=== PATIENT | male | born 1975 | race Caucasian/White ===

== ENCOUNTER 2019-09-16 12:38 | Outpatient (CLI) | payer OTHER, SELFPAY ==
--- NOTE | ~2019-09-16 | XR_ITS ---
EXAMINATION: XR chest 2V DATE: 09/16/2019 13:01 INDICATION: Cough. Chest tightness. TECHNIQUE: Frontal and lateral views of the chest were obtained on 4 radiographs. COMPARISON: None. FINDINGS: The chest demonstrates clear lungs without pneumonia, pleural effusion, or pneumothorax. Th e heart size is normal. There are surgical changes of the heart. Pectus excavatum is noted. IMPRESSION: 1. No acute cardiopulmonary disease. Reviewed, dictated and finalized at location A.
== END 2019-09-16 12:39 | disposition home or self-care (01) ==
LOC: ANHIMG 12:48
DX: R05 Cough (principal)
CPT/HCPCS: 71046

== ENCOUNTER 2020-09-22 09:58 | Outpatient (CLI) | payer OTHER, BC, SELFPAY ==
--- NOTE | ~2020-09-22 | XR_ITS ---
EXAMINATION: XR chest 2V 09/22/2020 10:37 INDICATION: Cough PROCEDURE: 2 view chest COMPARISON: 09/16/2019 FINDINGS: The lungs are clear. The cardiomediastinal silhouette is within normal limits. There are no pleural effusions. There is no pneumothorax suspected. Status post median sternotomy for CABG. T here is pectus excavatum. IMPRESSION: 1: NO ACUTE CARDIOPULMONARY DISEASE. Reviewed, dictated and finalized at location B.
== END 2020-09-22 09:59 | disposition home or self-care (01) ==
DX: R05 Cough (principal)
CPT/HCPCS: 71046

== ENCOUNTER 2024-08-30 09:54 | Outpatient (CLI) | payer OTHER, SELFPAY ==
--- NOTE | ~2024-08-30 | XR_ITS ---
Right Hand Technique: PA, oblique, and lateral views were obtained. Clinical History: Pain Findings: No acute fracture or dislocation is seen. Osseous alignment is anatomic. Joint spaces are p reserved. Soft tissues are unremarkable. Impression: Unremarkable right hand. Reviewed, dictated and finalized at location M. Impression: Unremarkable right hand.
--- OUTSIDE RECORDS SUMMARY | 2024-08-30 10:02 | XMS_ITS | Encounter Summary ---
Author Organization [facility] Address [address] [place] [address] Phone Care Team Providers Care Marketing Copywriter Name Role Phone Donnie Gómez MD PhD Unavailable [phone] Jonathan Tejada MD Primary Care Provider [phone] Encounter Details Date Type Department Care Team (Late st Contact Info) Description 08/23/2024 Results Follow-Up [facility] Cardiology [address] [facility] 8th [place] [address] [place] [id number] Clark Brown MD PhD [address] [facility] [address] [place], [place] [id number] Social History Tobacco Use Types Packs/Day Years Used Date Smoking Tobacco: Former Cigarettes 0.8 8 2 008 - 2016 Smokeless Tobacco: Never AUDIT-C Answer Date Recorded Q1: How often do you have a drink containing alcohol? 4 or more times a week 12/21/2023 Q2: How many drinks containi ng alcohol do you have on a typical day when you are drinking? 1 or 2 Q3: How often do you have si x or more drinks on one occasion? Never 12/21/2023 PHQ-2 Answer Date Recorded PHQ-2 Total Score (If total score is 3 or more points, staff should administer the PHQ-9) 0 12/21/2023 Sex and Gender Information Value Date Recorded Sex Assigned at Not on file Legal Sex Male 4:08 AM [facility] Gender Identity Male 06/11/2022 9:22 AM [facility] Sexual Orientation Not on file documented as of this encounter Plan of Treatment Not on file documented as of this encounter Visit Diagnoses Not on filedocumented in this encounter Care Teams Marketing Copywriter Relationship Specialty Start Date End Date Jonathan Tejada MD [address] [place] [address] PCP - General 03/29/24 Donnie Gómez MD PhD [address] [facility] [address] [place] [address] 09/16/19 documented as of this encounter
--- OUTSIDE RECORDS SUMMARY | 2024-08-30 10:02 | XMS_ITS | Clinical Summary ---
Author Organization [facility] Address [address] [place] [address] Care Team Providers Care Supervisor Travel Trailer Name Role Phone Donnie Gómez MD PhD Unavailable Jonathan Tejada MD Primary Care Provider [phone] Allergies No known active allergies Medications levothyroxine (SYNTHROID) 100 mcg tablet Take 1 tablet (100 mcg total) by mouth daily 3 Active lisinopriL (PRINIVIL,ZESTRIL) 10 mg tablet TAKE 1 TABLET(10 MG) BY MOUTH DAILY 30 tablet 11 4 Active atorvastatin (LIPITOR) 20 mg tabletIndications:M ixed hyperlipidemia TAKE 1 TABLET(20 MG) BY MOUTH DAILY 100 tablet 1 4 Active aspirin 81 mg enteric coated tablet Take 1 tablet (81 mg total) by mouth daily Active Active Problems Problem Noted Date Diagnosed Date Special screening for malignant neoplasms, colon 12/21/2023 Acquired hypothyroidism 04/19/2019 Overview (12/21/2023): Chronic, stable condition on daily thyroid replacement Continue same medications Routine physical examination 04/19/2019 Overview (12/21/2023): New: December 21, 2023 Assessment & Plan (08/18/2023 9:16 AM CDT): He has a PCP who checks his lipids and hgba1c, concerned about atypical chest pain and family history of CAD. Monitor. 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 With residual mild to moderate PI 05/2022-NYHA class I findings. ECHO pending. RV and LV have been stable in the past. ASA and SBE. Await ECHO from today. SBP remains elevated, I have asked that he monitor this at home, if it remains greater tahn 130 systolic consistently we will need to double his Lisinopril. ECHO in one year same day as Dr. Brown. Assessment & Plan (06/10/2022 10:41 AM [employer]): ToF with right BT shunt and Bioprosthetic porcine valve in 2003. With severe PI and asymptomatic in clinic. ECHO pending. RV and LV have been stable in the past. SBE. Await ECHO from today. SBP remains elevated, pt admittedly not great at remembering his lisinopril. Encouraged compliance will speak with pharmacist to see if levothyroxine and lisinopril can be taken together. Had recent lab work. Palpitations, unclear etiology. Holter monitor. ECHO in one year. Resolved Problems Problem Noted Date Diagnosed Date Resolved Date Essential hypertension 05/28/202112/20 Assessment & Plan (08/18/2023 9:15 AM CDT): SBP remains elevated, I have asked that he monitor this at home, if it remains greater than 130 systolic consistently we will need to double his Lisinopril. Assessment & Plan (06/10/2022 10:39 AM [employer]): SBP elevated in clinic and on repeat. Encourgaed compliance with lisinopril and to monitor SBP at home. Elevated blood pressure reading 04/24/2020 05/28/2021 Encounters Date Type Department Care Team Description 08/23/2024 Results Follow-Up [facility] Cardiology [address] [facility] 8th [place] [address] [place] [address] Clark Brown MD PhD 08/22/2024 3:00 PM CDT Office Visit [facility] Cardiology [address] [facility] 8th [place] [address] [place] [address] Clark Brown MD PhD Tetralogy of Fallot (Primary Dx) 08/22/2024 1:15 PM CDT - 08/22/2024 11:59 PM CDT Hospital Encounter [facility] [address] [facility] 8th [place] [address] Tetralogy of Fallot Discharge Disposition: Discharge to home or self care from Last 3 Months Immunizations Immunization Administration Dates Next Due Influenza Virus Vaccine Trivalent Mdv 01/18/2016 Influenza, Quadrivalent, Shira l Culture-based MDCK, Antibiotic Free, Intramuscular 01/30/2017 Influenza, Quadrivalent, Shira l Culture-based MDCK, Preservative Free, Antibiotic Free, Intramuscular 02/02/2018 Influenza, Trivalent, Cell Culture-based MDCK, Preservative Free, Antibiotic Free, Intramuscular 04/02/2021,01/03/2020,02/02/2018 Influenza, Trivalent, Preser vative Free, Intramuscular 12/21/2023 Influenza, Unspecified 07/15/2023(Deferred: Angelina ent Refused) Pfizer SARS-CoV-2 Monovalent Vaccination (12+ Yrs) PURPLE 01/05/2021,04/26/2019 Pneumococcal Conjugate PCV 13 04/22/2016 Tdap 02/11/2018,01/18/2016,06/02/2006 Surgical History Surgery Date Site/Laterality Comments CARDIAC VALVE REPLACEMENT Heart Valve Replacement - Heart Valve Replacement (Added by TW Conv) HI REPLACEMENT PULMONARY VALVE Pulmonary Valve Replacement - (Added by TW Conv) Medical History Medical History Date Comments Tobacco abuse counseling Encount er for smoking cessation counseling - 12/30/2010 (Added by TW Conv) Family History Medical History Relation Name Comments Heart attack Father Clark Henderson Family history of myocardial infarction - (Added by TW Conv) Relation Name Status Comments Father Clark Henderson Social History Tobacco Use Types Packs/Day Years [...] on file Legal Sex Male 4:08 AM [employer] Gender Identity Male 06/11/2022 9:22 AM [employer] Sexual Orientation Not on file Obstetrics History Last Filed Vital Signs Vital Sign Reading Time Taken Comments Blood Pressure 127/83 08/22/2024 2:28 PM CDT Pulse 78 08/22/2024 2:28 PM CDT Temperature 36.2 C (97.2 F) 12/21/2023 4:33 PM CDT Respiratory Rate 18 12/21/2023 4:33 PM CDT Oxygen Saturation 98% 08/22/2024 2:28 PM CDT Inhaled Oxygen Concentration - - Weight 71.2 kg (157 lb) 08/22/2024 2:28 PM CDT Height 172.7 cm (5' 8 ) 08/22/2024 2:28 PM CDT Body Mass Index 23.87 08/22/2024 2:28 PM CDT Plan of Treatment Health Maintenance Due Date Last Done Comments Colon Cancer Screening-Colonoscopy 1975 Zoster Vaccine (1 of 2) 09/13/2023 Covid-19 Vaccine ( season) 2023 01/05/2021, 04/26/2020, 04/05/2020, Additional history exists Depression Screening 12/20/2024 12/21/2023 Regular Well Visit/Exam 18-64 12/20/2024 12/21/2023 Prostate Cancer Screening-PSA 12/21/2025 12/22/2023 DTaP/Tdap/Td Vaccine (4 - Td or Tdap) 02/12/2028 02/11/2018, 01/18/2016, 06/02/2006 Pneumococcal vaccine <65 Aged Out 04/22/2016 No longer eligible based on patient's age to complete this topic Influenza Vaccine Completed 12/21/2023, , 01/03/2020, Additional history exists Hepatitis B Screening Completed 12/22/2023 Hepatitis C Screening Completed 12/22/2023 Procedures Procedure Name Priority Date/Time Associated Diagnosis Comments CONGENITAL TRANSTHORACIC ECHO (TTE) COMPLETE W DOPPLER/CF WO CONTRAST Routine 08/22/2024 2:26 PM CDT Tetralogy of Fallot HEPATITIS C ANTIBODY Routine 12/22/2023 8:41 AM CDT Need for hepatitis C screening test PSA SCREEN Routine 12/22/2023 8:41 AM CDT Screening PSA (prostate specific antigen) from Last 3 Months or Most Recently Relevant to Health Maintenance Results * CONGENITAL TRANSTHORACIC ECHO (TTE) COMPLETE W DOPPLER/CF WO CONTRAST (08/22/2024 2:26 PM CDT) EF Mod BP 60 % CONS SCIMAGE Anatomical Region Laterality Modality Ultrasound 08/22/2024 1:27 PM CDT Narrative 08/23/2024 4:37 AM CDT [facility] [place] [address] Transthoracic Echocardiographic Report Patient Name: EMORY HENDERSON E : 1975 (48y 11m) Gender: M Study Date: 08/22/2024 01:27:53 PM Ht(Inch): 68 Wt(Lb): 156.99 BSA: 1.85 Manager Telemetry: Nikolas Vicente RDCS Location: [facility] Order Provider: LIZ LONG Heart Rate: 70 BMI: 23.87 BP: 127 / 86 Ref Provider: LIZ LONG PROCEDURES: Echocardiographic Report: Transthoracic complete echo with strain imaging, 2D, spectral and tissue Doppler, color flow Doppler, M-mode. INDICATIONS: Tetralogy of Fallot. CONCLUSIONS: 1. Adult Congenital Heart Disease, s/p repair for Tetralogy of Fallot; s/p Pulmonic valve replacement with bioprosthesis (2003); ; Normal left ventricular size based on volume index. Concentric LV remodeling. Normal left ventricular systolic function. The Ejection Fraction (Arreola's) is measured at 60 %. The average global longitudinal strain is borderline. 2. Normal right ventricular size. Moderate right ventricular hypokinesis. 3. There is a bioprosthetic valve in the pulmonic position. The valve appears well seated with normal leaflet motion. Transpulmonary gradient is normal. ATTESTATION: I have personally reviewed and interpreted this study without fellow or resident. - DISCLAIMER: The study images and the final report will be retained in the patient chart by the Echo Laboratory for the legally required time period. This chart constitutes the legal record of any testing performed. FINDINGS: Left Ventricle: Normal left ventricular size based on volume index. Concentric LV remodeling. Normal left ventricular systolic function. The Ejection Fraction (Arreola's) is measured at 60 %. The average global longitudinal strain is borderline. The LV global strain is: -17.1 %. Right Ventricle: Normal right ventricular size. Moderate right ventricular hypokinesis. Left Atrium: The left atrium is normal in size. Right Atrium: The right atrium is normal in size. Mitral Valve: Normal Mitral Valve Structure. Mild mitral valve regurgitation. Aortic Valve: Normal trileaflet aortic valve. No aortic regurgitation. No aortic valve stenosis. Tricuspid Valve: Normal tricuspid valve structure. No tricuspid regurgitation. No tricuspid valve stenosis. Pulmonic Valve: There is a bioprosthetic valve in the pulmonic position. The valve appears well seated with normal leaflet motion. Transpulmonary gradient is normal. The pulmonic prosthesis demonstrates a normal transvalvular gradient for valve type and size. Peak gradient 12 mm Hg across the pulmonic bioprosthesis. Pericardium: Normal pericardium without pericardial effusion. Aorta: Mild aortic root dilation at sinuses of Valsalva. Dilation of the aortic root when indexed. PASP: Normal estimated pulmonary artery systolic pressure. Congenital: Sinus Solitus. Levocardia. Rhythm: Normal Sinus rhythm was seen during the study. MEASUREMENTS: 2D/MM Value Range Doppler Value Range LVIDd 2D 3.86 cm [ 4.20 - 5.80 ] AV Peak Jacoby 0.9 m/s [ 1.0 - 1.7 ] LVIDs 2D 2.59 cm [ 2.50 - 4.00 ] AV Peak PG 3.24 mmHg IVSd 2D 1.13 cm [ 0.60 - 1.00 ] AV Mean PG 2 mmHg LVPWd 2D 1.09 cm [ 0.60 - 1.00 ] AV VTI 18.3 cm LV Thickness Ratio 1.0 LVOT Peak Jacoby 0.8 m/s [ 0.7 - 1.1 ] LV FS 2D 32.89 % [ 25.00 - 43.00 ] LVOT Peak PG 2.56 mmHg LV Mass 2D 141.59 g LVOT Mean PG 2 mmHg LV Mass Index 2D 76.54 g/m2 LVOT VTI 14.9 cm RWT 0.56 LVOT Diam 2.39 cm EDV Mod BP 88.49 ml [ 62.00 - 150.00 ] CYNTHIA VTI 3.65 cm2 LV EDV Index 47.83 ml/m2 LVOT/AV VTI 0.81 - Dimensionless index (DVI) ESV Mod BP 35.41 ml [ 21.00 - 61.00 ] MV E Peak Jacoby 0.6 m/s [ 0.6 - 1.3 ] EF Mod BP 60 % [ 52 - 72 ] MV A Peak Jacoby 0.4 m/s [ 1.0 - 1.2 ] LV GLS -17.1 % [ -25.0 - -18.0 ] MV E/A 1.4 ratio [ 0.8 - 1.5 ] LA Length 4C 4.87 cm MV Decel Time 157.00 msec [ 104.00 - 258.00 ] LA Length 2C 4.70 cm Med E` Jacoby 6.8 cm/sec [ 8.0 - 25.0 ] LA Volume BP 31.64 ml Lat E` Jacoby 10.5 cm/sec [ 10.0 - 25.0 ] LA Volume Index 17.10 ml/m2 [ 16.00 - 34.00 ] Average E/E` 6.94 RV Base Dimen 2D 3.5 cm [ 2.5 - 4.2 ] RV S` 7.87 cm/sec TAPSE 1.10 cm [ 1.71 - 5.00 ] PV Peak Jacoby 1.5 m/s [ 0.4 - 0.8 ] RA Volume 42.38 ml PV Peak PG 9.00 mmHg RA Volume Index 22.91 ml/m2 PI ED Jacoby 96.63 m/sec AoR Diam 2D 3.97 cm [ 3.10 - 3.70 ] Ao Root Index 2.15 cm/m2 [ 1.00 - 2.00 ] Electronically Signed By: Lalo Ayala MD 08/23/2024 4:37:03 AM CDT Procedure Note Lalo Ayala MD - 08/23/2024 [facility] [place] [address] Transthoracic Echocardiographic Report Patient Name: EMORY HENDERSON E : 1975 (48y 11m) Gender: M Study Date: 08/22/2024 01:27:53 PM Ht(Inch): 68 Wt(Lb): 156.99 BSA: 1.85 Manager Telemetry: Nikolas Vicente RDCS Location: [facility] Order Provider:LIZ LONG Heart Rate: 70 BMI: 23.87 BP: 127 / 86 Ref Provider: LIZ LONG PROCEDURES: Echocardiographic Report: Transthoracic complete echo with strain imaging,2D, spectral and tissue Doppler, color flow Doppler, M-mode. INDICATIONS: Tetralogy of Fallot. CONCLUSIONS: 1. Adult Congenital Heart Disease, s/p repair for Tetralogy of Fallot; s/pPulmonic valve replacement with bioprosthesis (2003); ; Normal left ventricular sizebased on volume index. Concentric LV remodeling. Normal left ventricular systolicfunction. The Ejection Fraction (Arreola's) is measured at 60 %. The average global longitudinalstrain is borderline. 2. Normal right ventricular size. Moderate right ventricularhypokinesis. 3. There is a bioprosthetic valve in the pulmonic position. The valveappears well seated with normal leaflet motion. Transpulmonary gradient is normal. ATTESTATION: I have personally reviewed and interpreted this study without fellow orresident. - DISCLAIMER: The study images and the final report will be retained in the patientchart by the Echo Laboratory for the legally required time period. This chart constitutesthe legal record of any testing performed. FINDINGS: Left Ventricle: Normal left ventricular size based on volume index.Concentric LV remodeling. Normal left ventricular systolic function. The EjectionFraction (Arreola's) is measured at 60 %. The average global longitudinal strain is borderline.The LV global strain is: -17.1 %. Right Ventricle: Normal right ventricular size. Moderate right ventricularhypokinesis. Left Atrium: The left atrium is normal in size. Right Atrium: The right atrium is normal in size. Mitral Valve: Normal Mitral Valve Structure. Mild mitral valveregurgitation. Aortic Valve: Normal trileaflet aortic valve. No aortic regurgitation. Noaortic valve stenosis. Tricuspid Valve: Normal tricuspid valve structure. No tricuspidregurgitation. No tricuspid valve stenosis. Pulmonic Valve: There is a bioprosthetic valve in the pulmonic position.The valve appears well seated with normal leaflet motion. Transpulmonary gradient isnormal. The pulmonic prosthesis demonstrates a normal transvalvular gradient for valvetype and size. Peak gradient 12 mm Hg across the pulmonic bioprosthesis. Pericardium: Normal pericardium without pericardial effusion. Aorta: Mild aortic root dilation at sinuses of Valsalva. Dilation of theaortic root when indexed. PASP: Normal estimated pulmonary artery systolic pressure. Congenital: Sinus Solitus. Levocardia. Rhythm: Normal Sinus rhythm was seen during the study. MEASUREMENTS: 2D/MM Value Range DopplerValue Range LVIDd 2D 3.86 cm [ 4.20 - 5.80 ] AV Peak Vel0.9 m/s [ 1.0 - 1.7 ] LVIDs 2D 2.59 cm [ 2.50 - 4.00 ] AV Peak PG3.24 mmHg IVSd 2D 1.13 cm [ 0.60 - 1.00 ] AV Mean PG2 mmHg LVPWd 2D 1.09 cm [ 0.60 - 1.00 ] AV VTI18.3 cm LV Thickness Ratio 1.0 LVOT Peak Vel0.8 m/s [ 0.7 - 1.1 ] LV FS 2D 32.89 % [ 25.00 - 43.00 ] LVOT Peak PG2.56 mmHg LV Mass 2D 141.59 g LVOT Mean PG2 mmHg LV Mass Index 2D 76.54 g/m2 LVOT VTI14.9 cm RWT 0.56 LVOT Diam2.39 cm EDV Mod BP 88.49 ml [ 62.00 - 150.00 ] CYNTHIA VTI3.65 cm2 LV EDV Index 47.83 ml/m2 LVOT/AV VTI0.81 - Dimensionless index (DVI) ESV Mod BP 35.41 ml [ 21.00 - 61.00 ] MV E Peak Vel0.6 m/s [ 0.6 - 1.3 ] EF Mod BP 60 % [ 52 - 72 ] MV A Peak Vel0.4 m/s [ 1.0 - 1.2 ] LV GLS -17.1 % [ -25.0 - -18.0 ] MV E/A1.4 ratio [ 0.8 - 1.5 ] LA Length 4C 4.87 cm MV Decel Hwfc020.00 msec [ 104.00 - 258.00 ] LA Length 2C 4.70 cm Med E` Vel6.8 cm/sec [ 8.0 - 25.0 ] LA Volume BP 31.64 ml Lat E` Vel10.5 cm/sec [ 10.0 - 25.0 ] LA Volume Index 17.10 ml/m2 [ 16.00 - 34.00 ] Average E/E`6.94 RV Base Dimen 2D 3.5 cm [ 2.5 - 4.2 ] RV S`7.87 cm/sec TAPSE 1.10 cm [ 1.71 - 5.00 ] PV Peak Vel1.5 m/s [ 0.4 - 0.8 ] RA Volume 42.38 ml PV Peak PG9.00 mmHg RA Volume Index 22.91 ml/m2 PI ED Vel96.63 m/sec AoR Diam 2D 3.97 cm [ 3.10 - 3.70 ] Ao Root Index 2.15 cm/m2 [ 1.00 - 2.00 ] Electronically Signed By: Lalo Ayala MD 08/23/2024 4:37:03 AM CDT us Liz Long NP CV ECHO PROCEDURES Final R esult * PSA screen (12/22/2023 8:41 AM CDT) PSA-Total 0.73 <=3.90 ng/mL Comment: Interpretive Data AGE SEX REFERENCE INTERVAL 0 minutes-150 years Female None 0 minutes-49 years Male None 50-59 years Male 0-3.90 60-69 years Male 0-5.40 70-79 years Male 0-6.20 80-150 years Male 0-6.20 The Shamar PSA Total assay procedure was used. Results from different manufacturers or methods may not be comparable. Serial testing should be performed using the same method. Current interpretive data last revised 21. Testing performed by: [facility], [address] [place] [address]., [id number] Blood 12/22/2023 8:41 AM CDT 12/22/2023 9:46 AM CDT us Vaibhav Shipman DO LAB BLOOD ORDERABLES F inal Result [facility] [id number] [facility] Department [place] [address] * Hepatitis C antibody Blood (12/22/2023 8:41 AM CDT) Hep C Ab Nonreactive Nonreactive Comment: Antibodies to HCV not detected. Does NOT exclude the possibility of recent exposure to HCV. Current interpretive data was last revised on 21 Interpretive Data Nonreactive: Antibodies to HCV not detected. Does NOT exclude the possibility of recent exposure to HCV. Equivocal: Equivocal for HCV antibodies. Supplemental molecular testing will be automatically performed to determine infection status in accordance with current CDC screening recommendations. Reactive: Positive for HCV antibodies. This may represent current or past HCV infection. Supplemental molecular testing will be automatically performed to determine current infection status in accordance with current CDC screening recommendations. Interpretive data was last revised on 2019. Blood 12/22/2023 8:41 AM CDT 12/22/2023 12:42 PM CDT Vaibhav Shipman DO LAB MICROBIOLOGY - GEN ERAL ORDERABLES Edited Result - Final [facility] [address] [facility] Department [place] [address] from Last 3 Months or Most Recently Relevant to Health Maintenance Insurance [facility] CHOICE PLUS [facility] HMO/PPO Address: [facility] [address] ACCESS ALLIED BENEFITS [employer] CHOICE PRF PPO [place] [facility] CHOICE PLUS [facility] HMO/PPO Address: [address] [address] [place] [address] ANTH ACCESS ALLIED BENEFITS AETNA [facility] PPO [place] [employer]IG[employer] OPEN ACCESS [facility] OPEN ACCESS Care Teams Supervisor Travel Trailer Relationship Specialty Start Date End Date Jonathan Tejada MD [address] [place] [address] PCP - General 03/29/24 Donnie Gómez MD PhD [address] [facility] [address] [place] [address] 09/16/19
--- OUTSIDE RECORDS SUMMARY | 2024-08-30 10:02 | XMS_ITS | Clinical Summary ---
Author Organization [facility] Address [address] [place] [address] Care Team Providers Care Legal Research Analyst Name Role Phone Jonathan Santiago MD Primary Care Provider [phone] Allergies No known active allergies Medications levothyroxine (SYNTHROID) 88 MCG tablet Take 88 mcg by mouth daily. 03/01/2018 Active ALPRAZolam 0.25 MG tablet 09/15/2019 Active montelukast 10 MG tablet Take 10 mg by mouth nightly at bedtime. Active vitamin C 500 MG tablet Take 500 mg by mouth daily. Active Cholecalciferol (VITAMIN D3) 50 MCG (2000 UT) Tab Active cetirizine 10 MG tablet Take 10 mg by mouth daily. Active albuterol sulfate HFA (PROAIR HFA) 108 (90 Base) MCG/ACT inhaler Inhale 2 puffs into the lungs every 6 (six) hours as needed for Wheezing. Active dextromethorpha n-guaiFENesin ER (MUCINEX DM) 30-600 MG TABLET SR 12 HR 12 hr tablet Take 1 tablet by mouth every 12 (twelve) hours as needed. Active Encounters Date Type Department Care Team Description 08/05/2024 3:23 PM CDT - 08/05/2024 11:59 PM CDT Hospital Encounter [facility] [address] [place] [address] Jonathan Santiago MD Discharge Disposition: Home or Self Care (Routine Discharge) 08/05/2024 Travel from Last 3 Months Immunizations Immunization Administration Dates Next Due PFIZER COVID-19 (ORIGINAL FO RMULATION, PURPLE CAP) mRNA, LNP-S, PF, 30 MCG/0.3 ML DOSE 04/26/2020,04/05/2020 Tdap (Boostrix) 02/11/2018 Family History Medical History Relation Comments Heart Disease Father No Known Problems Mother Relation Status Comments Father Alive Mother Alive Social History Tobacco Use Types Packs/Day Years Used Date Smoking Tobacco: Never Smokeless Tobacco: Never Alcohol Use Standard Drinks/Week Comments Yes 7 (1 standard drink = 0.6 oz pur e alcohol) Sex and Gender Information Value Date Recorded Sex Assigned at Male 01/15/2024 7:56 AM CDT Legal Sex Male 8:35 PM CDT Gender Identity Male 01/15/2024 7:56 AM CDT Sexual Orientation Not on file Last Filed Vital Signs Vital Sign Reading Time Taken Comments Blood Pressure 157/81 11/09/2019 4:36 PM CDT Pulse 81 11/09/2019 4:36 PM CDT Temperature 37.1 C (98.8 F) 11/09/2019 4:36 PM CDT Respiratory Rate 20 11/09/2019 4:36 PM CDT Oxygen Saturation 100% 11/09/2019 4:36 PM CDT Inhaled Oxygen Concentration - - Weight 68 kg (150 lb) 11/09/2019 4:36 PM CDT Height 170.2 cm (5' 7 ) 11/09/2019 4:36 PM CDT Body Mass Index 23.49 11/09/2019 4:36 PM CDT Plan of Treatment Health Maintenance Due Date Last Done Comments Colorectal Cancer Screening Colonoscopy (10 Years) 1973 Annual Physical 1976 Hepatitis B Vaccines (1 of 3 - 19+ 3-dose series) 1992 Pneumococcal Vaccine: 50+ Years (2 of 2 - PPSV23) 06/17/2016 04/22/2016 Zoster Vaccines (1 of 2) 09/13/2023 COVID-19 Vaccine (2023- season) 2023 01/05/2021, 04/26/2020, 04/05/2020, Additional history exists DTaP, Tdap and Td Vaccines (4 - Td or Tdap) 02/12/2028 02/11/2018, 01/18/2016, 06/02/2006 Hepatitis C Completed 12/22/2023, 12/22/2023 Meningococcal B Vaccine Aged Out No l onger eligible based on patient's age to complete this topic Meningococcal Vaccine Aged Out No martin jayson eligible based on patient's age to complete this topic RSV Immunizations Under 20 Months Aged Out No longer eligible based on patient's age to complete this topic Procedures Procedure Name Priority Date/Time Associated Diagnosis Comments CT CHEST+ABD W CON Routine 08/05/2024 4: 12 PM CDT Solitary pulmonary nodule Other specified diseases of liver from Last 3 Months Results * CT CHEST+ABD W CON (08/05/2024 4:12 PM CDT) Anatomical Region Laterality Modality Chest, Abdomen Computed Tomogra phy 08/13/2024 4:24 PM CDT Impressions 08/13/2024 4:37 PM CDT Impression: 1. No acute cardiopulmonary or abdominal finding 2. Stable left lower lobe 4 mm micronodules and an additional right apical 4 mm [address] identified. Additional CT imaging follow-up in 18 months recommended to demonstrate continued stability. 3. Stable left hepatic lobe 2.2 cm enhancing lesion most likely representing a flash filling imaging hemangioma. Adenoma and FNH not excluded but but but more atypical in a male. 4. Other nonemergent, incidental, stable and potential chronic findings as discussed in the report body above. Ordered By: JONATHAN SANTIAGO Interpreted By: Reta Contreras MD, 08/13/2024 4:24 PM Narrative 08/13/2024 4:37 PM [address] [address] Examination: CT chest and abdomen with IV contrast. Exam Date/Time: 08/05/2024 4:03 PM Indication: 48 male bony nodule liver lesion follow-up. History of smoking. Comparison: CT abdomen pelvis 02/07/2024. CT calcium scoring study 01/19/2020 Technique: Computed tomography of the chest and abdomen performed following uneventful intravenous administration of 100 mL Isovue-370 contrast. A dose lowering technique was used for this procedure, which may include, but is not limited to, dose reduction technique, automated exposure control, the use of iterative reconstruction, and ALARA (As Low As Reasonably Achievable) / Image Gently techniques. CT Findings: CHEST Support tubes and lines: None. Base of neck/thyroid: Negative. MEDIASTINUM: Heart: Normal cardiac size. No pericardial effusion Lymph nodes: No supraclavicular, axillary, internal mammary, mediastinal, or hilar adenopathy. VASCULATURE Thoracic aorta is unremarkable. No atherosclerosis or dilatation. Central pulmonary arterial enlargement the main pulmonary artery measuring up to 2.7 cm with postsurgical changes LUNGS AND PLEURA Lungs: Minimal biapical pleural parenchymal scarring. Stable left lower lobe 4 mm pulmonary micronodule having an elongated appearance on reformatted images. Second 4 mm micronodules present at the right lung apex (axial lung window image 23). No additional pulmonary nodule, mass or consolidation. The right middle lobe focal linear subsegmental scarring and post inflammatory bronchiolectasis No other acute or chronic airspace finding. Remaining airways are clear and unremarkable without wall thickening, dilatation or mucous plugging Pleura: No pleural effusion, thickening, or calcification. BONES/SOFT TISSUES Pectus excavatum deformity redemonstrated. Prior sternotomy changes ABDOMEN Liver and bile ducts: Normal size, contour and enhancement. Left hepatic lobe lateral segment uniformly enhancing 2.2 cm lesion following the vascular pool unchanged compared to 02/07/2024. Primary differential includes a flash filling hemangioma. No new additional focal liver lesion seen. Hepatic and portal venous systems are patent. No intra or extrahepatic biliary tree dilatation. Gallbladder: Present and unremarkable. No calcific cholelithiasis or inflammation Pancreas: Normal. Spleen: Normal. RETROPERITONEUM Adrenals: Normal. Kidneys: Bilateral normal size, contour and enhancement. No suspicious focal finding, collecting system obstruction or perinephric stranding. Lymph nodes: No lymphadenopathy in the abdomen or pelvis. BOWEL AND PERITONEUM Bowel: Small sliding hiatal hernia Normal in caliber and wall thickness. Free air or fluid: None. VASCULATURE Unremarkable abdominal aorta. Mesenteric and visceral branches are patent. Variant celiac axis. Splenic artery and proper hepatic artery arising adjacent to each other but separate from the anterior abdominal aorta. BONES/SOFT TISSUES Skeletal structures are unremarkable. Procedure Note Reta Contreras MD - 08/13/2024 [address] [place] [address] Examination: CT chest and abdomen with IV contrast. Exam Date/Time: 08/05/2024 4:03 PM Indication: 48 male bony nodule liver lesion follow-up. History ofsmoking. Comparison: CT abdomen pelvis 02/07/2024. CT calcium scoring study01/19/2020 Technique: Computed tomography of the chest and abdomen performedfollowing uneventful intravenous administration of 100 mL Isovue-370contrast. A dose lowering technique was used for this procedure, which mayinclude, but is not limited to, dose reduction technique, automatedexposure control, the use of iterative reconstruction, and ALARA (As LowAs Reasonably Achievable) / Image Gently techniques. CT Findings: CHEST Support tubes and lines: None. Base of neck/thyroid: Negative. MEDIASTINUM: Heart: Normal cardiac size. No pericardial effusion Lymph nodes: No supraclavicular, axillary, internal mammary, mediastinal,or hilar adenopathy. VASCULATURE Thoracic aorta is unremarkable. No atherosclerosis or dilatation. Centralpulmonary arterial enlargement the main pulmonary artery measuring up to2.7 cm with postsurgical changes LUNGS AND PLEURA Lungs: Minimal biapical pleural parenchymal scarring. Stable left lower lobe 4 mm pulmonary micronodule having an elongatedappearance on reformatted images. Second 4 mm micronodules present at the right lung apex (axial lung windowimage 23). No additional pulmonary nodule, mass or consolidation. The right middle lobe focal linear subsegmental scarring and postinflammatory bronchiolectasis No other acute or chronic airspace finding. Remaining airways are clear and unremarkable without wall thickening,dilatation or mucous plugging Pleura: No pleural effusion, thickening, or calcification. BONES/SOFT TISSUES Pectus excavatum deformity redemonstrated. Prior sternotomy changes ABDOMEN Liver and bile ducts: Normal size, contour and enhancement. Left hepaticlobe lateral segment uniformly enhancing 2.2 cm lesion following thevascular pool unchanged compared to 02/07/2024. Primary differentialincludes a flash filling hemangioma. No new additional focal liver lesionseen. Hepatic and portal venous systems are patent. No intra orextrahepatic biliary tree dilatation. Gallbladder: Present and unremarkable. No calcific cholelithiasis orinflammation Pancreas: Normal. Spleen: Normal. RETROPERITONEUM Adrenals: Normal. Kidneys: Bilateral normal size, contour and enhancement. No suspiciousfocal finding, collecting system obstruction or perinephric stranding. Lymph nodes: No lymphadenopathy in the abdomen or pelvis. BOWEL AND PERITONEUM Bowel: Small sliding hiatal hernia Normal in caliber and wall thickness. Free air or fluid: None. VASCULATURE Unremarkable abdominal aorta. Mesenteric and visceral branches are patent.Variant celiac axis. Splenic artery and proper hepatic artery arisingadjacent to each other but separate from the anterior abdominal aorta. BONES/SOFT TISSUES Skeletal structures are unremarkable. Impression: 1. No acute cardiopulmonary or abdominal finding 2. Stable left lower lobe 4 mm micronodules and an additional right apical4 mm micronodule identified. Additional CT imaging follow-up in 18 monthsrecommended to demonstrate continued stability. 3. Stable left hepatic lobe 2.2 cm enhancing lesion most likelyrepresenting a flash filling imaging hemangioma. Adenoma and FNH notexcluded but but but more atypical in a male. 4. Other nonemergent, incidental, stable and potential chronic findings asdiscussed in the report body above. Ordered By: JONATHAN SANTIAGO Interpreted By: Reta Contreras MD, 08/13/2024 4:24 PM Jonathan Santiago MD CT Final Result from Last 3 Months Insurance Care Teams Legal Research Analyst Relationship Specialty Start Date End Date Jonathan Santiago MD [address] [place] [address] PCP - General INTERNAL MEDICINE 01/19/24
--- OUTSIDE RECORDS SUMMARY | 2024-08-30 10:02 | XMS_ITS | Encounter Summary ---
Author Organization [facility] Address [address] [place] [address] Phone Care Team Providers Care Sales Representative Name Role Phone Donnie Gómez MD PhD Primary Care Provider + Donnie Gómez MD PhD Primary Care Provider + Donnie Gómez MD PhD Unavailable [phone] Vaibhav Shipman DO Primary Care Provider Jonathan Tejada MD Primary Care Provider [phone] Encounter Details Date Type Department Care Team (Late st Contact Info) Description 02/01/2018 Telephone [facility] Cardiology [address] [facility] 8[address] [place] [address] [place] [address] Patrica Richards, MPH Social History Tobacco Use Types Packs/Day Years Used Date Smoking Tobacco: Former Sex and Gender Information Value Date Recorded Sex Assigned at Not on file Legal Sex Male 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 Gender Identity Male 06/11/2022 9:22 AM SHOPPER INSIGHTS MANAGER Sexual Orientation Not on file documented as of this encounter Plan of Treatment Not on file documented as of this encounter Visit Diagnoses Not on filedocumented in this encounter Care Teams Sales Representative Relationship Specialty Start Date End Date Donnie Gómez MD PhD [address] [place] [address] PCP - General 02/11/17 09/15/19 Donnie Góemz MD PhD [address] [facility] [address] [place] [address] PCP - General 09/16/19 12/20/23 Vaibhav Shipman DO [address] [facility] [address] [place] [address] PCP - General Family Medicine 12/21/23 03/28/24 Jonathan Tejada MD [address] [facility] [address] [facility] [address] INTERNAL MEDICINE [place], [place] [id number] PCP - General 03/29/24 Donnie Gómez MD PhD [address] [facility] [address] [place] [address] 09/16/19 documented as of this encounter
--- OUTSIDE RECORDS SUMMARY | 2024-08-30 10:02 | XMS_ITS | Encounter Summary ---
Author Organization [facility] Address [address] [place] [address] Phone Care Team Providers Care Orthopaedic Technologist Name Role Phone Donnie Gómez MD PhD Primary Care Provider + Donnie Gómez MD PhD Primary Care Provider + Donnie Gómez MD PhD Unavailable [phone] Vaibhav Shipman DO Primary Care Provider Jonathan Tejada MD Primary Care Provider [phone] Encounter Details Date Type Department Care Team (Latest Contact Info) Description 06/30/2017 Orders Only [facility] Scanning, Provider Social History Tobacco Use Types Packs/Day Years Used Date Smoking Tobacco: Former Sex and Gender Information Value Date Recorded Sex Assigned at Not on file Legal Sex Male 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 Gender Identity Male 06/11/2022 9:22 AM SHIP RIGGER APPRENTICE Sexual Orientation Not on file documented as of this encounter Progress Notes * Anjali Richardson MD - 06/30/2017 11:59 PM CDT Labs look good Repeat 3-5 years RIGGER APPRENTICE * Claudette Rodriguez RN - 06/30/2017 11:59 PM CDT LMOR W/ RESULTS OFFERED CALL BACK RIGGER APPRENTICE documented in this encounter Plan of Treatment Not on file documented as of this encounter Procedures Procedure Name Priority Date/Time Associated Diagnosis Comments SCAN - LABS 06/30/2017 documented in this encounter Results * SCAN - LABS (06/30/2017) Provider Scanning Final Result documented in this encounter Visit Diagnoses Not on filedocumented in this encounter Care Teams Orthopaedic Technologist Relationship Specialty Start Date End Date Donnie Gómez MD PhD [address] [facility] [address] [place] [address] PCP - General 02/11/17 09/15/19 Donnie Gómez MD PhD [address] [facility] [address] [place] [address] PCP - General 09/16/19 12/20/23 Vaibhav Shipman DO [address] [facility] [address] [place] [address] PCP - General Family Medicine 12/21/23 03/28/24 Jonathan Tejada MD [address] INTERNAL MEDICINE [place], [place] [address] PCP - General 03/29/24 Donnie Gómez MD PhD [address] [facility] [address] [place] [address] 09/16/19 documented as of this encounter
--- OUTSIDE RECORDS SUMMARY | 2024-08-30 10:02 | XMS_ITS | Referral Summary ---
Author Organization [facility] Address [address] [place] [address] Care Team Providers Care Director Money Name Role Phone Donnie Gómez MD PhD Unavailable [phone] Jonathan Tejada MD Primary Care Provider [phone] Encounters Date Type Department Care Team Description 08/23/2024 Results Follow-Up [facility] Cardiology [address] [place] [address] [place] [address] Clark Brown MD PhD 08/22/2024 3:00 PM CDT Office Visit [facility] Cardiology Replaced by [facility] [address] [address] Clark Brown MD PhD Tetralogy of Fallot (Primary Dx) 08/22/2024 1:15 PM CDT - 08/22/2024 11:59 PM CDT Hospital Encounter [facility] Cardiac Diagnostic Lab [address] [address] Tetralogy of Fallot Discharge Disposition: Discharge to home or self care from Last 3 Months Allergies No known active allergies Medications levothyroxine [...] Overview (12/21/2023): Repair at age 3 in [place] (1978) Biprosthetic PVR with a porcine valve, [...] Brown. Assessment & Plan (06/10/2022 10:41 AM COVERING MACHINE OPERATOR HELPER): ToF with right BT shunt and Bioprosthetic [...] Lisinopril. Assessment & Plan (06/10/2022 10:39 AM COVERING MACHINE OPERATOR HELPER): SBP elevated in clinic and on repeat. Encourgaed compliance with lisinopril and to monitor SBP at home. Elevated blood pressure reading 04/24/2020 05/28/2021 Immunizations Immunization Administration Dates Next Due Influenza Virus Vaccine Trivalent Mdv 01/18/2016 Influenza, Quadrivalent, Shira l Culture-based MDCK, Antibiotic Free, Intramuscular 01/30/2017 Influenza, Quadrivalent, Shiar l Culture-based MDCK, Preservative Free, Antibiotic Free, Intramuscular 02/02/2018 Influenza, Trivalent, Cell Culture-based MDCK, Preservative Free, Antibiotic Free, Intramuscular 04/02/2021,01/03/2020,02/02/2018 Influenza, Trivalent, Preser vative Free, Intramuscular 12/21/2023 Influenza, Unspecified 07/15/2023(Deferred: Angelina ent Refused) Pfizer SARS-CoV-2 Monovalent Vaccination (12+ Yrs) PURPLE 01/05/2021,04/26/2019 Pneumococcal Conjugate PCV 13 04/22/2016 Tdap 02/11/2018,01/18/2016,06/02/2006 Social History Tobacco Use Types Packs/Day Years [...] on file Legal Sex Male 4:08 AM COVERING MACHINE OPERATOR HELPER Gender Identity Male 06/11/2022 9:22 AM COVERING MACHINE OPERATOR HELPER Sexual Orientation Not on file Last Filed [...] 08/22/2024 2:28 PM CDT Plan of Treatment Not on file Procedures Procedure Name Priority Date/Time Associated Diagnosis [...] PM CDT Narrative 08/23/2024 4:37 AM CDT [facility] [place] [address] Transthoracic Echocardiographic Report Patient Name: EMORY HENDERSON E : 1975 (48y 11m) Gender: M Study Date: 08/22/2024 01:27:53 PM Ht(Inch): 68 Wt(Lb): 156.99 BSA: 1.85 Managing Manager: Nikolas Vicente RDCS Location: [facility] Order Provider: LIZ LONG Heart Rate: 70 [...] Procedure Note Lalo Ayala MD - 08/23/2024 [facility] [place] [address] Transthoracic Echocardiographic Report Patient Name: EMORY HENDERSON E : 1975 (48y 11m) Gender: M Study Date: 08/22/2024 01:27:53 PM Ht(Inch): 68 Wt(Lb): 156.99 BSA: 1.85 Managing Manager: Nikolas Vicente RDCS Location: [facility] Order Provider:LIZ LONG Heart Rate: 70 BMI: [...] LA Length 4C 4.87 cm MV Decel [id number] msec [ 104.00 - 258.00 ] LA [...] Lalo Ayala MD 08/23/2024 4:37:03 AM CDT Liz Long NP CV ECHO PROCEDURES Final [...] data last revised 21. Testing performed by: [facility], [address] [place] [address], [place]., [address] Blood 12/22/2023 8:41 AM CDT 12/22/2023 9:46 AM CDT [facility] LAB BLOOD ORDERABLES F inal Result Performing Organization Address [facility]/ZIP Co de Phone Number [facility] [place] [address] * Hepatitis C antibody Blood (12/22/2023 8:41 [...] 8:41 AM CDT 12/22/2023 12:42 PM CDT [facility] LAB MICROBIOLOGY - GEN ERAL ORDERABLES Edited Result - Final [facility] [place] [address] from Last 3 Months or Most Recently Relevant to Health Maintenance Insurance [facility] H[facility]/PPO Address: [address] [address] [place] [address] [facility] ALLIED BENEFITS [employer] CHO[place] [facility] CHO[facility] H[facility]/PPO Address: [address] [address] [place] [address] ANTH ACCESS ALLIED BENEFITS [employer] [place] CIG[place] OPEN ACCESS CIG[employer] OPEN ACCESS Care Teams Director Money Relationship Specialty Start Date End Date Jonathan Tejada MD [address] [place] [address] PCP - General 03/29/24 Donnie Gómez MD PhD [address] [place] [address] 09/16/19
--- OUTSIDE RECORDS SUMMARY | 2024-08-30 10:02 | XMS_ITS | Clinical Summary ---
Author Organization [employer] [facility] Care Team Providers Care Application Development Director Name Role Phone Unavailable Primary Care Provider Unavailabl e Social History Tobacco Use Types Packs/Day Years Used Date Smoking Tobacco: Never Assessed Sex and Gender Information Value Date Recorded Sex Assigned at Not on file Legal Sex Male 3:43 AM DIPPER AND DRIER Gender Identity Not on file Sexual Orientation Not on file Plan of Treatment Health Maintenance Due Date Last Done Comments Hepatitis C Virus (HCV) Screening 1975 Hepatitis B Immunization (1 of 3 - 19+ 3-dose series) 1992 Colonoscopy 2018 Colorectal Cancer Screening 2018 Cologuard 09/13/2023 Immunochemical Fecal Occult Blood 09/13/2023 Pneumococcal Immunization (5 0+ years) (1 of 1 - PCV) 09/13/2023 Zoster Immunization (1 of 2) 09/13/2023 Influenza Immunization (#1) 2023 SARS-COV-2 Immunization ( season) 2023 01/10/2021, 04/26/2020, 04/05/2020 Respiratory Syncytial Virus (RSV) Immunization (Adult) (1 - 1-dose 75+ series) 2048 DTaP/Tdap/Td Immunization Discontinued 02/11/2018 TdaP Immunization Completed 02/11/2018 Meningococcal Immunization (ACWY) Aged Out No longer eligible based on patient's age to complete this topic Pneumococcal Immunization Combined Aged Out No longer eligible based on patient's age to complete this topic Rotavirus Immunization Aged Out No lo nger eligible based on patient's age to complete this topic
== END 2024-08-30 09:55 | disposition home or self-care (01) ==
PROVIDERS: PCP Internal Medicine; Visit Provider Internal Medicine
DX: M79.641 Pain in right hand (principal); M79.644 Pain in right finger(s); S69.90XA Unspecified injury of unspecified wrist, hand and finger(s), initial encounter; X58.XXXA Exposure to other specified factors, initial encounter
CPT/HCPCS: 73130